=== PATIENT | male | born 1950 | race African-American/Black ===

== ENCOUNTER 2020-01-12 19:41 | Inpatient (IN) | payer MEDICARE, OTHER ==
[~2020-01-12] VITALS: Ht 177.8 cm; Wt 55.8 kg
[2020-01-12 21:24] LABS: HEMATOCRIT. 37.4 % (42.0-52.0); HEMOGLOBIN. 12.6 g/dL (14.0-18.0); MEAN CORPUSCULAR HEMOGLOBIN 36.4 pg (28.0-32.0); MEAN CORPUSCULAR VOLUME 107.8 fL (80.0-94.0); MEAN PLATELET VOLUME 7.4 fl (7.4-10.4); PLATELET 202 x1000/uL (130-400); RED BLOOD CELL COUNT 3.47 mill/uL (4.7-6.1); RED CELL DISTRIBUTION WIDTH 16.3 % (11.6-14.6)
[2020-01-12 21:31] LABS: CHLORIDE 104 mEq/L (98-107)
[2020-01-12 21:35] LABS: ETHANOL BLOOD 183 mg/dL
[2020-01-12 21:38] LABS: CLARITY URINE CLEAR (CLEAR); COLOR URINE YELLOW (YELLOW); KETONES URINE NEGATIVE (NEGATIVE); LEUKOCYTE ESTERASE URINE NEGATIVE (NEGATIVE); NITRITE URINE NEGATIVE (NEGATIVE); OCCULT BLOOD URINE NEGATIVE (NEGATIVE); PH URINE 6.5 (4.5-8.0); PROTEIN URINE NEGATIVE (NEGATIVE); SPECIFIC GRAVITY URINE 1.004 (1.005-1.030); UROBILINOGEN URINE 0.2 E.U./dL (0.2-1.0)
[2020-01-12 21:53] LABS: PLATELET ESTIMATE NORMAL
[2020-01-12 22:20] LABS: *AMPHETAMINES SCREEN URINE NEGATIVE (NEGATIVE); *BARBITURATES SCREEN URINE NEGATIVE (NEGATIVE); *BENZODIAZEPINES SCREEN URINE NEGATIVE (NEGATIVE); *COCAINE SCREEN URINE NEGATIVE (NEGATIVE); METHADONE URINE SCREEN NEGATIVE (NEGATIVE); OPIATES URINE SCREEN NEGATIVE (NEGATIVE)
[2020-01-12 22:21] LABS: CANNABINOID URINE SCREEN NEGATIVE (NEGATIVE); PHENCYCLIDINE URINE SCREEN NEGATIVE (NEGATIVE)
[2020-01-13 14:05] VITALS: BP 184/108
[2020-01-13 15:00] VITALS: BP 161/92
[2020-01-13 16:00] VITALS: BP 187/105
[2020-01-13] MEDS: ENOXAPARIN 40MG/0.4ML SYR SUBCUT SCH (16:00)
[2020-01-13] MEDS ORDERED: ONDANSETRON HCL 4MG/2ML INJ IV PRN (16:00)
[2020-01-13] MEDS ORDERED: HYDROCODONE/ACETAMINOPHEN 5/325MG TABLET PO PRN (16:00)
[2020-01-13] MEDS ORDERED: IPRATROPIUM/ALBUTEROL 0.5-3(2.5)MG/3ML NEB HHN PRN (16:00)
[2020-01-13] MEDS ORDERED: ACETAMINOPHEN 325MG TABLET PO PRN (16:00)
[2020-01-13 20:00] VITALS: BP 165/95
[2020-01-13 22:00] VITALS: BP 170/110
[2020-01-13] MEDS ORDERED: CLONIDINE 0.1MG TABLET PO PRN ×2 (22:00→22:15)
[2020-01-13] MEDS: AMLODIPINE 10MG TABLET PO SCH (22:22)
[2020-01-14] VITALS: BP 119/71
[2020-01-14 04:00] VITALS: BP_SYST 112; BP_SYST 120; BP_SYST 143; BP_DIAS 68; BP_DIAS 72; BP_DIAS 88
[2020-01-14 06:33] LABS: HEMATOCRIT. 35.8 % (42.0-52.0); HEMOGLOBIN. 12.1 g/dL (14.0-18.0); MEAN CORPUSCULAR HEMOGLOBIN 36.4 pg (28.0-32.0); MEAN CORPUSCULAR VOLUME 107.2 fL (80.0-94.0); MEAN PLATELET VOLUME 7.9 fl (7.4-10.4); PLATELET 206 x1000/uL (130-400); RED BLOOD CELL COUNT 3.34 mill/uL (4.7-6.1); RED CELL DISTRIBUTION WIDTH 15.7 % (11.6-14.6)
[2020-01-14 06:37] LABS: CHLORIDE 105 mEq/L (98-107)
[2020-01-14 06:47] LABS: HDL CHOLESTEROL 71 mg/dL (40-59)
[2020-01-14 06:48] LABS: LDL CHOLESTEROL 76 mg/dL (5-100)
[2020-01-14 06:50] LABS: CREATINE KINASE 109 IU/L (39-308); T4 FREE 0.81 ng/dL (0.76-1.46)
[2020-01-14 08:00] VITALS: BP 124/77
[2020-01-14] MEDS: AMLODIPINE 10MG TABLET PO SCH (08:53)
[2020-01-14] MEDS ORDERED: SODIUM CHLORIDE 0.45% 1,000 ML IV SCH (10:00)
[2020-01-14] MEDS ORDERED: MULTIVITAMINS,THER W-MINERALS TABLET PO SCH (11:00)
[2020-01-14 12:00] VITALS: BP 125/77
[2020-01-14] MEDS ORDERED: PANTOPRAZOLE 40MG DR TABLET PO SCH (12:00)
[2020-01-14] MEDS ORDERED: THIAMINE HCL 100MG TABLET PO SCH (12:00)
[2020-01-14] MEDS ORDERED: FOLIC ACID 1MG TABLET PO SCH (12:00)
[2020-01-14] MEDS ORDERED: ASPI-1158 MT (14:56)
[2020-01-14 14:57] LABS: PLATELET ESTIMATE NORMAL
[2020-01-14] MEDS: ENOXAPARIN 40MG/0.4ML SYR SUBCUT SCH (15:38)
[2020-01-14 16:00] VITALS: BP 119/76
[2020-01-14 16:51] VITALS: BP 119/76
== END 2020-01-14 19:04 | disposition home or self-care (01) | DRG 48 ==
LOC: ER 19:41 → 6WST 01-13 00:21 → SUPCPDRO 01-13 12:54 → ENRESERV 01-13 13:18
PROVIDERS: ADMIT Internal Medicine; ATTEND Internal Medicine
DX: G90.8 Other disorders of autonomic nervous system (principal); F10.129 Alcohol abuse with intoxication, unspecified; D64.9 Anemia, unspecified; E78.00 Pure hypercholesterolemia, unspecified; E78.5 Hyperlipidemia, unspecified; I10 Essential (primary) hypertension; M47.9 Spondylosis, unspecified; Y90.6 Blood alcohol level of 120-199 mg/100 ml; F17.210 Nicotine dependence, cigarettes, uncomplicated; R53.1 Weakness; Z71.41 Alcohol abuse counseling and surveillance of alcoholic; E44.1 Mild protein-calorie malnutrition; Z68.1 Body mass index [BMI] 19.9 or less, adult
CPT/HCPCS: 36415; 71045; 72141; 80053; 80061; 80305; 80320; 81003; 82550; 83880; 84439; 84443; 84484; 85025; 93005; 93306; 93880; 97116; 97162; 99285; J1650; G0480